=== PATIENT | male | born 1990 | race Hispanic/Latino ===

== ENCOUNTER 2023-04-25 09:18 | Emergency (ER) | payer BC, OTHER ==
[~2023-04-25] VITALS: Ht 182.9 cm; Wt 96.6 kg
[2023-04-25 09:22] VITALS: BP 130/80; PULSE 73; RESP 16; O2SAT 100
[2023-04-25] MEDS ORDERED: HYDROCODONE/ACETAMINOPHEN 5/325 MG TAB PO ONE (12:00)
[2023-04-25] MEDS ORDERED: IBUPROFEN 600 MG TABLET PO ONE (12:00)
[2023-04-25] MEDS ORDERED: DIAZEPAM 5 MG TABLET PO ONE (12:00)
[2023-04-25] MEDS ORDERED: PREDNISONE 20 MG TABLET PO ONE (12:00)
[2023-04-25] MEDS ORDERED: ONDANSETRON ODT 4MG TAB SL ONE (12:00)
== END 2023-04-25 13:19 | disposition home or self-care (01) ==
LOC: EDH 09:18
DX: S30.0XXA Contusion of lower back and pelvis, initial encounter (principal); Z90.49 Acquired absence of other specified parts of digestive tract; X58.XXXA Exposure to other specified factors, initial encounter; Y93.89 Activity, other specified; Y92.89 Other specified places as the place of occurrence of the external cause; Y99.8 Other external cause status
CPT/HCPCS: 71101; 72072